=== PATIENT | female | born 1985 | race Caucasian/White ===

== ENCOUNTER → 2019-12-09 11:02 | Outpatient (CLI) | payer OTHER | END | disposition home or self-care (01) | LOC: LAB 11:02 | PROVIDERS: ATTEND Emergency Medicine Pediatric Emergency Medicine | DX: Z03.818 Encounter for observation for suspected exposure to other biological agents ruled out (principal) ==

== ENCOUNTER → 2020-09-26 | Outpatient (CLI) | payer OTHER | END | disposition home or self-care (01) | LOC: LAB 12:04 | PROVIDERS: ATTEND Emergency Medicine Pediatric Emergency Medicine | DX: Z03.818 Encounter for observation for suspected exposure to other biological agents ruled out (principal) ==

== ENCOUNTER 2020-10-03 08:00 | Outpatient (CLI) | payer OTHER | END 2020-10-03 08:30 | disposition home or self-care (01) | LOC: PPH VACUNA 08:00 | DX: Z23 Encounter for immunization (principal) ==

== ENCOUNTER 2020-10-24 08:00 | Outpatient (CLI) | payer OTHER | END 2020-10-24 08:30 | disposition home or self-care (01) | LOC: PPH VACUNA 08:00 | DX: Z23 Encounter for immunization (principal) ==

== ENCOUNTER 2020-11-25 08:00 | Outpatient (CLI) | payer OTHER | END 2020-11-25 08:30 | disposition home or self-care (01) | LOC: PPH VACUNA 08:00 | PROVIDERS: ATTEND Emergency Medicine Pediatric Emergency Medicine | DX: Z23 Encounter for immunization (principal) ==

== ENCOUNTER 2021-02-26 07:53 | Emergency (ER) | payer OTHER ==
[~2021-02-26] VITALS: Ht 170.2 cm; Wt 90.7 kg
== END 2021-02-26 10:36 | disposition home or self-care (01) ==
LOC: ER 07:53
DX: B34.9 Viral infection, unspecified (principal); Z20.822 Contact with and (suspected) exposure to COVID-19

== ENCOUNTER 2021-02-28 05:55 | Emergency (ER) | payer OTHER ==
[~2021-02-28] VITALS: Ht 170.2 cm; Wt 90.7 kg
[2021-02-28] MEDS ORDERED: ORASEP SPRAY30 ML MM (08:23)
[2021-02-28] MEDS ORDERED: ZYNCOF 20-400120 ML PO (08:23)
== END 2021-02-28 08:37 | disposition home or self-care (01) ==
LOC: ER 05:55
DX: U07.1 COVID-19 (principal)

== ENCOUNTER 2021-09-16 06:40 | Outpatient (CLI) | payer OTHER ==
[~2021-09-16 06:40] MED LIST: ORASEP SPRAY30 ML MM; ZYNCOF 20-400120 ML PO
== END 2021-09-16 06:42 | disposition home or self-care (01) ==
LOC: LAB 06:40
PROVIDERS: ATTEND Surgery
DX: R10.84 Generalized abdominal pain (principal)

== ENCOUNTER 2021-09-16 08:44 | Outpatient (CLI) | payer OTHER | END 2021-09-16 10:54 | disposition home or self-care (01) | LOC: SONOGRAMA 08:44 | PROVIDERS: ATTEND Surgery | DX: K82.9 Disease of gallbladder, unspecified (principal) ==

== ENCOUNTER 2021-09-24 07:12 | Outpatient (CLI) | payer OTHER | END 2021-09-24 07:15 | disposition home or self-care (01) | LOC: NUCLEAR 07:12 | DX: R10.9 Unspecified abdominal pain (principal) | CPT/HCPCS: 78226; A9537 ==

== ENCOUNTER 2021-11-04 08:00 | Outpatient (CLI) | payer OTHER | END 2021-11-04 08:05 | disposition home or self-care (01) | LOC: PPH VACUNA 08:00 | PROVIDERS: ATTEND Emergency Medicine Pediatric Emergency Medicine | DX: Z23 Encounter for immunization (principal) ==

== ENCOUNTER → 2021-11-05 | Outpatient (CLI) | payer OTHER | END | disposition home or self-care (01) | LOC: RAD 08:13 | PROVIDERS: ATTEND Surgery | DX: M25.512 Pain in left shoulder (principal) ==

== ENCOUNTER 2022-02-12 13:59 | Outpatient (CLI) | payer OTHER | END 2022-02-12 14:09 | disposition home or self-care (01) | LOC: PPH VACUNA 13:59 | PROVIDERS: ATTEND Emergency Medicine Pediatric Emergency Medicine | DX: Z23 Encounter for immunization (principal) ==

== ENCOUNTER 2022-04-13 08:03 | Outpatient (CLI) | payer OTHER | END 2022-04-13 08:05 | disposition home or self-care (01) | LOC: LAB 08:03 | PROVIDERS: ATTEND Orthopaedic Surgery Sports Medicine | DX: Z20.822 Contact with and (suspected) exposure to COVID-19 (principal) ==

== ENCOUNTER → 2022-07-02 | Outpatient (CLI) | payer OTHER | END | disposition home or self-care (01) | LOC: RAD 13:25 | PROVIDERS: ATTEND Orthopaedic Surgery Sports Medicine | DX: M75.52 Bursitis of left shoulder (principal) | CPT/HCPCS: 73221 ==

== ENCOUNTER 2022-08-13 09:40 | Outpatient (CLI) | payer OTHER | END 2022-08-13 10:00 | disposition home or self-care (01) | LOC: LAB 09:40 | PROVIDERS: ATTEND Surgery | DX: Z01.812 Encounter for preprocedural laboratory examination (principal) ==

== ENCOUNTER 2022-11-06 07:36 | Outpatient (CLI) | payer OTHER | END 2022-11-06 07:46 | disposition home or self-care (01) | LOC: PPH VACUNA 07:36 | PROVIDERS: ATTEND Emergency Medicine Pediatric Emergency Medicine | DX: Z23 Encounter for immunization (principal) | CPT/HCPCS: 90686; G0008 ==